=== PATIENT | female | born 1995 | race Caucasian/White ===

== ENCOUNTER 2017-05-13 12:42 | Inpatient (IN) | payer MEDICAID ==
[~2017-05-13] VITALS: Ht 157.5 cm; Wt 63.0 kg
--- NOTE | 2017-05-13 13:14 | RADRPT ---
PROCEDURE: OB ultrasound for biophysical profile CLINICAL INDICATION: Low ANA TECHNIQUE: Multiple sonographic images of the pelvis were obtained. Transabdominal views of the g ravid uterus are available for review. The images were reviewed on a PACS workstation. COMPARISON: None FINDINGS: breathing movement = 2/2 tone = 2/2 motion = 2/2 ANA = 2/2 ANA = 7.6 cm Single live intrauterine with cardiac activity of 139 bpm. position is cephal ic. The placenta is anterior. IMPRESSION: 1. Single live intrauterine gestation. 2. Biophysical profile = 8/8. 3. ANA = 7.6 cm. RPTAT: HH .Angeli Breaux MD, MD Date Time Electronically viewed and signed by .Angeli Breaux MD, on 05/13/2017 13:14 .G/
[2017-05-13 13:21] VITALS: Ht 157.5 cm; Wt 63.0 kg
[2017-05-13] MEDS ORDERED: LACTATED RINGER'S 1,000 ML IV ONE (14:00)
--- NOTE | 2017-05-13 14:48 | RADRPT ---
PROCEDURE: Limited OB ultrasound. CLINICAL INDICATION: Pain and cramping . Evaluate cervical length. TECHNIQUE: Sonographic evaluation to assess cervical length was performed. Transabdominal imaging of the gravid uterus was performed. COMPARISON: None FINDINGS: Single live intrauterine with cardiac activity is identified. The cervical length e quals 3.9. cm. The cervix is closed. There is a cephalic presentation. Heart rate 148 beats per mi nute. Anterior grade II placenta. IMPRESSION: 1. Closed cervix measuring 3 point centimeters in length. 2. Cephalic presentation. RPTAT: GG .Christopher Phillips MD, Date Time Electronically viewed and signed by .Christopher Phillips MD, on 05/13/2017 14:48 .L/
[2017-05-13 15:03] LABS: BASOPHIL # 0.1 10^3/ul (0.0-0.1); BASOPHILS % 0.5 % (0.0-2.0); EOSINOPHILS # 0.1 10^3/ul (0.0-0.5); EOSINOPHILS % 0.9 % (0.0-7.0); HEMATOCRIT 33.7 % (37.0-47.0); HEMOGLOBIN 11.2 g/dl (12.0-16.0); LYMPHOCYTES # 1.7 10^3/ul (0.8-2.9); LYMPHOCYTES % 16.1 % (15.0-51.0); MEAN CORPUSCULAR HGB CONC 33.2 g/dl (32.0-37.0); MEAN CORPUSCULAR VOLUME 87.3 fl (82.0-101.0); MONOCYTE # 0.9 10^3/ul (0.3-0.9); MONOCYTES % 8.1 % (0.0-11.0); NEUTROPHIL # 7.8 10^3/ul (1.6-7.5); NEUTROPHILS % 73.6 % (39.0-77.0); PLATELET COUNT 282 10^3/UL (140-415); RED BLOOD COUNT 3.86 10^6/ul (4.20-5.40); RED CELL DISTRIBUTION WIDTH 13.1 % (11.5-14.5); WHITE BLOOD COUNT 10.6 10^3/ul (4.8-10.8)
[2017-05-13 15:20] LABS: ADD UMIC YES; UR ASCORBIC ACID NEGATIVE (NEGATIVE); UR BACTERIA FEW /HPF (NONE SEEN); UR BILIRUBIN (Dip) NEGATIVE (NEGATIVE); UR BLOOD (Dip) NEGATIVE (NEGATIVE); UR CLARITY CLEAR (CLEAR); UR COLOR COLORLESS (YELLOW); UR GLUCOSE (Dip) NEGATIVE (NEGATIVE); UR KETONES (Dip) NEGATIVE (NEGATIVE); UR LEUKOCYTE ESTERASE (Dip) TRACE Leu/ul (NEGATIVE); UR NITRITE (Dip) NEGATIVE (NEGATIVE); UR RBC 0 /HPF (0-5); UR SPECIFIC GRAVITY (Dip) 1.002 (1.003-1.030); UR TOTAL PROTEIN (Dip) NEGATIVE (NEGATIVE); UR UROBILINOGEN (Dip) NEGATIVE (NEGATIVE)
[2017-05-13] MEDS ORDERED: ACETAMINOPHEN 325 MG TAB PO PRN (15:30)
[2017-05-13] MEDS: BETAMET NA PHOS/AC(6 MG/ML) 5ML INJ IM SCH (16:08)
[2017-05-13] MEDS: LACTATED RINGER'S 1,000 ML IV SCH (16:08)
[2017-05-14] MEDS: LACTATED RINGER'S 1,000 ML IV SCH ×3 (03:02→20:26)
--- NOTE | 2017-05-14 05:47 | NEURPT ---
DATE: 05/13/2017 COMMENTS: The patient apparently was admitted to [facility] with ANA of 3.2. She was given IV fluid and discharged yesterday with ANA of 8 cm. She presented again today to re- evaluate ANA, and also she has va. She is currently 35 and 3. Her ANA 7.6 cm. RECOMMENDATIONS: Since patient is less than 36 weeks' gestation and va, betamethasone is recommended. Also, since the betamethasone is going to be given, then you can consider Procardia every 6 hours if blood pressures allow 20 mg a day; if not, 10 mg every 6 hours. I would refrain from hydration for the next 24 hours just to see if she does hold onto the ANA of 7.6 cm. If her ANA drops below 7 cm, then you can consider IV hydration. The patient is to stay in house until at least Tuesday for hydration, betamethasone, and Procardia. Procardia can be discontinued after the second dose of betamethasone. Dictated By: Radha Rubalcava MD /zoran/sophie /Document#: [id number]
[2017-05-14] MEDS: FERROUS SULFATE (EC) 325 MG TAB PO SCH (09:15)
[2017-05-14] MEDS: PRENATAL VITAMIN PO SCH (09:15)
--- NOTE | 2017-05-14 09:15 | PREOPHP ---
DATE OF ADMISSION: 05/13/2017 HISTORY OF PRESENT ILLNESS: Ms. Serene Ash is a 21-year- old, I, para 0, EDC 06/14/2017, with intrauterine at 35 weeks and 4 days gestational age. She presented to triage for nonstress test/biophysical profile secondary to a history of oligohydramnios in the present . She was observed to have contractions and ANA of 7.5 cm. After discussion with Dr. Rubalcava, perinatologist, it was recommended to admit the patient for steroid treatment and continue to give IV hydration. She currently lying in supine position with no apparent distress. Patient feels occasional contractions. She denies any vaginal bleeding or discharge. She was already seen and evaluated last week for rule out rupture of membrane, at [facility], which was negative. Her care took place at . PAST MEDICAL HISTORY: None. MEDICATIONS: vitamins. PAST SURGICAL HISTORY: None. OB HISTORY: Primigravida. 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 Denies any sexually transmitted disease. Sexually active with 1 partner. SOCIAL HISTORY: Denies any smoking, drugs or alcohol. FAMILY HISTORY: None. REVIEW OF SYSTEMS: All within normal, except history of present illness. PHYSICAL EXAMINATION: HEENT: Within normal limits. CARDIAC: S1, S2 regular rhythm. ABDOMEN: Gravid and nontender. Negative CVA bilateral. EXTREMITIES: Edema. No calf tenderness. GENITALIA: Vaginal exam is long, closed. Negative pooling. ASSESSMENT: The patient is a 21-year-old, I, para 0, intrauterine at 35 weeks and 4 days gestational age, with contractions/low amniotic fluid index. PLAN: Plan is steroid treatment, followed up with perinatology. Dictated By: Gutierrez Washington MD /zoran/robbie /Document#: [id number]
[2017-05-14] MEDS: BETAMET NA PHOS/AC(6 MG/ML) 5ML INJ IM SCH (16:07)
[2017-05-15] MEDS: LACTATED RINGER'S 1,000 ML IV SCH ×2 (04:26→18:49)
[2017-05-15] MEDS: FERROUS SULFATE (EC) 325 MG TAB PO SCH ×2 (09:00→09:43)
[2017-05-15] MEDS: PRENATAL VITAMIN PO SCH ×2 (09:00→09:43)
[2017-05-15] MEDS ORDERED: PRENATAL VITAMIN PO SCH (10:00)
[2017-05-15] MEDS ORDERED: FERROUS SULFATE (EC) 325 MG TAB PO SCH (10:00)
--- NOTE | 2017-05-15 12:36 | QN ---
Documentation Comment Patient was seen and evaluated awake alert oriented 3 Patient denies any contractions vaginal bleeding or discharge Vital signs stable Abdomen gravid nontender negative CVA bilateral Extremity negative edema no calf tenderness heart tracing category 1 [place] irregular contractions Assessment interim at 35 weeks and 5 days gestational age contractions low ANA Status post 2 steroid treatments for lung maturity Plan follow-up with perinatologist MARIKA ROSA MD May 15, 2017 12:36
[2017-05-16] MEDS: LACTATED RINGER'S 1,000 ML IV SCH (07:34)
[2017-05-16] MEDS: FERROUS SULFATE (EC) 325 MG TAB PO SCH (09:13)
[2017-05-16] MEDS: PRENATAL VITAMIN PO SCH (09:14)
--- NOTE | 2017-05-16 12:59 | RADRPT ---
PROCEDURE: US OB biophysical profile. CLINICAL INDICATION: decreased movements, low ANA TECHNIQUE: Multiple sonographic images of the pelvis were obtained. The images were reviewed on a PACS workstation. COMPARISON: 05/13/2017 FINDINGS: There is a single viable intrauterine gestation. Cardiac activity is present with 154 beats per min [place]. There is a vertex presentation. The placenta is anterior. There is no evidence of placental abruption. There is a normal amount of amniotic fluid with an ANA = 9.0 cm. Biophysical profile: movement 2/2 tone 2/2. breathing 2/2 ANA 2/2 Total 04/05 RPTAT: AA . IMPRESSION: Normal biophysical profile. . .Diaz Bobby MD, MD Date Time Electronically viewed and signed by .Diaz Bobby MD, MD on 05/16/2017 12:59 .S/
--- NOTE | 2017-05-16 13:45 | QN ---
Documentation Comment atient was seen and evaluated awake alert oriented 3 Patient denies any contractions vaginal bleeding or discharge Vital signs stable Abdomen gravid nontender negative CVA bilateral Extremity negative edema no calf tenderness heart tracing category 1 [place] irregular contractions ana 9cm Assessment interim at 35 weeks and 6 days gestational age contractions low ANA Status post 2 steroid treatments for lung maturity P/ recommended by dr. salgado to discharge home today if increase aft I will discharge home tome continue nst/ bpp 2 weekly MARIKA ROSA MD May 16, 2017 13:45
--- NOTE | 2017-05-16 13:47 | PD.PPDC ---
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
--- NOTE | 2017-05-16 21:38 | DS ---
DATE OF ADMISSION: 05/13/2017 DATE OF DISCHARGE: 05/16/2017 HOSPITAL COURSE: Ms. Serene Salgado is a 21-year-old, 1, para 0, intrauterine at 35 weeks and 6 days gestational age was admitted on 05/13/2017 secondary to history of oligohydramnios and currently low ANA. Recommended by perinatologist to be admitted for steroid treatment and IV hydration. The patient was seen and evaluated today by Dr. Rubalcava who recommended to discharge home with ANA improved. She will be discharged on 05/16/2017. FOLLOWUP: In the office in 2-3 days. DISCHARGE INSTRUCTIONS: Strict labor precautions given and followup NSC bronchoscope for followup twice weekly. Dictated By: Gutierrez Washington MD /zoran/diana /Document#: [id number]
== END 2017-05-16 14:55 | disposition home or self-care (01) | DRG 782 ==
LOC: OBT 12:42 → L-D 12:47 → OBT 15:25 → OBG 15:25
PROVIDERS: ADMIT Obstetrics & Gynecology; ATTEND Obstetrics & Gynecology
DX: O41.03X0 Oligohydramnios, third trimester, not applicable or unspecified (principal); Z3A.35 35 weeks gestation of pregnancy
CPT/HCPCS: 36415; 76817; 76818; 81001; 85025; 87081; 96360; G0463; J0702; J7120

== ENCOUNTER 2017-05-19 15:08 | Outpatient (CLI) | payer MEDICAID ==
[~2017-05-19] VITALS: Ht 157.5 cm; Wt 62.4 kg
[2017-05-19 15:16] VITALS: BP 107/62; PULSE 96; RESP 18; Ht 157.5 cm; Wt 62.4 kg
[2017-05-19] MEDS: LACTATED RINGER'S 1,000 ML IV SCH ×2 (15:22→18:33)
--- NOTE | 2017-05-19 21:04 | RADRPT ---
PROCEDURE: Limited OB ultrasound CLINICAL INDICATION: 21 years of age, female. Evaluate amniotic fluid. Low ANA. TECHNIQUE: Sonographic evaluation to assess the amniotic fluid index was performed. Transabdomina l imaging of the gravid uterus was performed. COMPARISON: None available. FINDINGS: Estimated due date June 14, 2017 Gestational age by SID 36 weeks 2 days A single live intrauterine in is cephalic presentation is identified. The heart rate measures 150 bpm. The amniotic -fluid index equals 7.3 cm. There is an anterior placenta, grade 2. IMPRESSION: 1. Single living fetus in cephalic presentation. 2. Oligohydramnios. Amniotic fluid index measures 7.3 cm. 3. Anterior placenta grade II RPTAT: HCTS Physician Thelma Date Time Electronically viewed and signed by Physician Thelma on 05/19/2017 21:03 CS/
--- NOTE | 2017-05-19 22:12 | TRIAGE ---
OB Triage Datetime Report Generated by CPN: 05/19/2017 22:11 Datetime: 05/19/2017 21:28 Stage of : OB Triage Labor Evaluation Frequency: 0 Monitor Mode: External Pattern: Normal: <= 5 Contractions in 10 Minutes Resting Tone [place]: Relaxed Heart Rate FHR Baseline Rate: 150 Monitor Mode: External US Variability: Moderate 6-25 bpm Accelerations: 15X15 Decelerations: None Pain Presence: None/Denies Pain Type: N/A Datetime: 05/19/2017 21:00 Stage of : OB Triage Temperature Route: Oral Labor Evaluation Frequency: 0 Monitor Mode: External Pattern: Normal: <= 5 Contractions in 10 Minutes Resting Tone [place]: Relaxed Heart Rate FHR Baseline Rate: 150 Monitor Mode: External US Variability: Moderate 6-25 bpm Accelerations: 15X15 Decelerations: None Category: Category I Pain Presence: None/Denies Pain Type: N/A Datetime: 05/19/2017 20:00 Stage of : OB Triage Temperature Route: Oral Labor Evaluation Frequency: 0 Monitor Mode: External Pattern: Normal: <= 5 Contractions in 10 Minutes Resting Tone [place]: Relaxed Heart Rate FHR Baseline Rate: 150 Monitor Mode: External US Variability: Moderate 6-25 bpm Accelerations: 15X15 Decelerations: None Category: Category I Pain Presence: None/Denies Pain Type: N/A Datetime: 05/19/2017 19:00 Pattern: Normal: <= 5 Contractions in 10 Minutes Resting Tone [place]: Relaxed Contraction Comments: NO UC Heart Rate FHR Baseline Rate: 155 Monitor Mode: External US Variability: Moderate 6-25 bpm Accelerations: 15X15 Decelerations: None Category: Category I Pain Presence: None/Denies Pain Type: N/A Datetime: 05/19/2017 18:00 Labor Evaluation Frequency: OCC Monitor Mode: External Duration (sec)2399: 50 Quality: Mild Pattern: Normal: <= 5 Contractions in 10 Minutes Resting Tone [place]: Relaxed Heart Rate FHR Baseline Rate: 155 Monitor Mode: External US Variability: Moderate 6-25 bpm Accelerations: 15X15 Decelerations: None Category: Category I Pain Presence: None/Denies Pain Type: N/A Datetime: 05/19/2017 17:01 Pattern: Normal: <= 5 Contractions in 10 Minutes Resting Tone [place]: Relaxed Contraction Comments: no uc Heart Rate FHR Baseline Rate: 155 Monitor Mode: External US Variability: Moderate 6-25 bpm Accelerations: 15X15 Decelerations: None Category: Category I Pain Presence: None/Denies Pain Type: N/A Datetime: 05/19/2017 16:01 Labor Evaluation Frequency: occ Monitor Mode: External Duration (sec)2399: 50-60 Quality: Mild Pattern: Normal: <= 5 Contractions in 10 Minutes Resting Tone [place]: Relaxed Heart Rate FHR Baseline Rate: 155 Monitor Mode: External US Variability: Moderate 6-25 bpm Accelerations: 15X15 Decelerations: Variable Category: Category II Pain Presence: None/Denies Pain Type: N/A Datetime: 05/19/2017 15:20 Assessment Type: Ongoing Assessment Maternal Assessment Level of Consciousness: Fully Conscious DTR's/Clonus: DTRs 2+; No Clonus Headache: Denies Blurred Vision: No Respiratory Effort: Unlabored; Regular Rhythm; Equal Expansion Breath Sounds, Left: Clear and Equal Breath Sounds, Right: Clear and Equal Nausea/Vomiting: Denies RUQ Epigastric Pain: Denies Lower Extremities Edema: None Degree: None Upper Extremities Edema: None Degree: None Facial Edema: None Fall Risk Assessment History of Falling: (0) No Secondary Diagnosis: (0) No Ambulatory Aid: (0) Bedrest/Nurse Assist IV Therapy: (20) Yes Gait: (0) Normal/Bedrest/Immobile Mental Status: (0) Oriented to Own Ability Fall Score: 20 Fall Risk Score Definition: No Risk: No action required Datetime: 05/19/2017 15:19 Time of Arrival: 05/19/2017 15:03 EGA: 36.2 Arrived By: Ambulatory Arrived From: Other Unit in Hospital Chief Complaint: Pt. came to ob triage from [facility] clinic for iv hydration due to jeffery 6.4 today Movement: Present Patient Complaints: None Time Provider Notified: 05/19/2017 16:22 Provider Notified: [email or web address] Initial Plan: iv hydration Datetime: 05/16/2017 14:07 Stage of : Antepartum Datetime: 05/16/2017 14:00 Labor Evaluation Frequency: OCCASIONAL Monitor Mode: External Quality: Mild Contraction Comments: PT DOES NOT FEEL CONTRACTIONS Heart Rate FHR Baseline Rate: 140 Monitor Mode: External US FHR Baseline Changes: No Baseline Change Variability: Moderate 6-25 bpm Accelerations: 15X15 Decelerations: None Category: Category I Datetime: 05/16/2017 13:44 Labor Evaluation Frequency: 0 Monitor Mode: External Resting Tone [place]: Relaxed Heart Rate FHR Baseline Rate: 140 Monitor Mode: External US FHR Baseline Changes: No Baseline Change Variability: Moderate 6-25 bpm Accelerations: 15X15 Decelerations: None Category: Category I Datetime: 05/16/2017 13:01 Labor Evaluation Frequency: 0 Monitor Mode: External Resting Tone [place]: Relaxed Heart Rate FHR Baseline Rate: 140 Monitor Mode: External US FHR Baseline Changes: No Baseline Change Variability: Moderate 6-25 bpm Accelerations: 15X15 Decelerations: None Category: Category I Datetime: 05/16/2017 12:56 Stage of : Antepartum Datetime: 05/16/2017 12:01 Labor Evaluation Frequency: IRREG Monitor Mode: External Resting Tone [place]: Relaxed Contraction Comments: PT DOES NOT FEEL CONTRACTIONS Heart Rate FHR Baseline Rate: 140 Monitor Mode: External US FHR Baseline Changes: No Baseline Change Variability: Moderate 6-25 bpm Accelerations: 15X15 Decelerations: None Category: Category I Datetime: 05/16/2017 11:22 Stage of : Antepartum Temperature Route: Oral Pain Assessment Pain Scale: 1 Pain Presence: Intermittent Pain Type: Contraction Pain Location: Abdomen Pain Goal: 0 Datetime: 05/16/2017 10:51 Labor Evaluation Frequency: X3 Monitor Mode: External Pattern: Normal: <= 5 Contractions in 10 Minutes Heart Rate FHR Baseline Rate: 140 Monitor Mode: External US FHR Baseline Changes: No Baseline Change Variability: Moderate 6-25 bpm Accelerations: 15X15 Decelerations: None Category: Category I Datetime: 05/16/2017 10:00 Labor Evaluation Frequency: X2 Monitor Mode: External Resting Tone [place]: Relaxed Heart Rate FHR Baseline Rate: 140 Monitor Mode: External US FHR Baseline Changes: No Baseline Change Variability: Moderate 6-25 bpm Accelerations: 15X15 Decelerations: None Category: Category I Datetime: 05/16/2017 09:56 Stage of : Antepartum Datetime: 05/16/2017 09:00 Labor Evaluation Frequency: X2 WITH IRRIT Monitor Mode: External Quality: Mild Pattern: Normal: <= 5 Contractions in 10 Minutes Resting Tone [place]: Relaxed Datetime: 05/16/2017 07:58 Assessment Type: Ongoing Assessment Maternal Assessment Level of Consciousness: Fully Conscious DTR's/Clonus: DTRs 2+; No Clonus Headache: Denies Blurred Vision: No Respiratory Effort: Unlabored; Regular Rhythm; Equal Expansion Breath Sounds, Left: Clear and Equal Breath Sounds, Right: Clear and Equal Nausea/Vomiting: Denies RUQ Epigastric Pain: Denies Lower Extremities Edema: None Degree: None Upper Extremities Edema: None Degree: None Facial Edema: None Fall Risk Assessment History of Falling: (0) No Secondary Diagnosis: (0) No Ambulatory Aid: (0) Bedrest/Nurse Assist IV Therapy: (20) Yes Gait: (0) Normal/Bedrest/Immobile Mental Status: (0) Oriented to Own Ability Fall Score: 20 Fall Risk Score Definition: No Risk: No action required Datetime: 05/16/2017 07:54 Labor Evaluation Frequency: IRREG Monitor Mode: External Duration (sec)2399: 40-60 Quality: Mild Resting Tone [place]: Relaxed Heart Rate FHR Baseline Rate: 140 Monitor Mode: External US FHR Baseline Changes: No Baseline Change Variability: Moderate 6-25 bpm Accelerations: 15X15 Decelerations: None Category: Category I Datetime: 05/16/2017 07:52 Stage of : Antepartum Temperature Route: Oral Pain Assessment Pain Scale: 1 Pain Presence: Intermittent Pain Type: Contraction Pain Location: Abdomen Pain Goal: 0 Pain Relief Measures: Comfort Measures Datetime: 05/16/2017 06:59 Labor Evaluation Frequency: IRREG Monitor Mode: External Duration (sec)2399: 30-120 Quality: Mild Resting Tone [place]: Relaxed Heart Rate FHR Baseline Rate: 130 Monitor Mode: External US FHR Baseline Changes: No Baseline Change Variability: Moderate 6-25 bpm Accelerations: 15X15 Decelerations: None Category: Category I Datetime: 05/16/2017 06:00 Labor Evaluation Frequency: IRREG Monitor Mode: External Duration (sec)2399: 30-120 Quality: Mild Resting Tone [place]: Relaxed Heart Rate FHR Baseline Rate: 130 Monitor Mode: External US FHR Baseline Changes: No Baseline Change Variability: Moderate 6-25 bpm Accelerations: 15X15 Decelerations: None Category: Category I Datetime: 05/16/2017 05:00 Labor Evaluation Frequency: IRREG Monitor Mode: External Duration (sec)2399: 30-120 Quality: Mild Resting Tone [place]: Relaxed Heart Rate FHR Baseline Rate: 130 Monitor Mode: External US FHR Baseline Changes: No Baseline Change Variability: Moderate 6-25 bpm Accelerations: 15X15 Decelerations: None Category: Category I Datetime: 05/16/2017 04:49 Temperature Route: Oral Pain Assessment Pain Scale: 0 Datetime: 05/16/2017 04:00 Labor Evaluation Frequency: IRREG Monitor Mode: External Duration (sec)2399: 30-110 Quality: Mild Resting Tone [place]: Relaxed Heart Rate FHR Baseline Rate: 130 Monitor Mode: External US FHR Baseline Changes: No Baseline Change Variability: Moderate 6-25 bpm Accelerations: 15X15 Decelerations: None Category: Category I Datetime: 05/16/2017 03:00 Labor Evaluation Frequency: IRREG Monitor Mode: External Duration (sec)2399: 30-120 Quality: Mild Resting Tone [place]: Relaxed Heart Rate FHR Baseline Rate: 130 Monitor Mode: External US FHR Baseline Changes: No Baseline Change Variability: Moderate 6-25 bpm Accelerations: 15X15 Decelerations: Variable Category: Category II Datetime: 05/16/2017 02:05 Contraction Comments: ZERO ADJ. Datetime: 05/16/2017 02:00 Labor Evaluation Frequency: IRRITABL Monitor Mode: External Duration (sec)2399: 20-80 Quality: Mild Resting Tone [place]: Relaxed Heart Rate FHR Baseline Rate: 130 Monitor Mode: External US FHR Baseline Changes: No Baseline Change Variability: Moderate 6-25 bpm Accelerations: 15X15 Decelerations: None Category: Category I Datetime: 05/16/2017 01:00 Labor Evaluation Frequency: IRRITABL Monitor Mode: External Duration (sec)2399: 40-60 Quality: Mild Resting Tone [place]: Relaxed Heart Rate FHR Baseline Rate: 130 Monitor Mode: External US FHR Baseline Changes: No Baseline Change Variability: Moderate 6-25 bpm Accelerations: 15X15 Decelerations: None Category: Category I Datetime: 05/16/2017 00:00 Labor Evaluation Frequency: IRREG Monitor Mode: External Duration (sec)2399: 30-90 Quality: Mild Resting Tone [place]: Relaxed Heart Rate FHR Baseline Rate: 130 Monitor Mode: External US FHR Baseline Changes: No Baseline Change Variability: Moderate 6-25 bpm Accelerations: 15X15 Decelerations: None Category: Category I Datetime: 05/15/2017 23:00 Labor Evaluation Frequency: IRRITABL Monitor Mode: External Duration (sec)2399: 20-40 Quality: Mild Resting Tone [place]: Relaxed Heart Rate FHR Baseline Rate: 130 Monitor Mode: External US FHR Baseline Changes: No Baseline Change Variability: Moderate 6-25 bpm Accelerations: 15X15 Decelerations: None Category: Category I Datetime: 05/15/2017 22:00 Labor Evaluation Frequency: IRRITABL Monitor Mode: External Duration (sec)2399: 30-50 Quality: Mild Resting Tone [place]: Relaxed Heart Rate FHR Baseline Rate: 140 Monitor Mode: External US FHR Baseline Changes: No Baseline Change Variability: Moderate 6-25 bpm Accelerations: 15X15 Decelerations: None Category: Category I Datetime: 05/15/2017 21:00 Labor Evaluation Frequency: X2 Monitor Mode: External Duration (sec)2399: 60-70 Quality: Mild Resting Tone [place]: Relaxed Heart Rate FHR Baseline Rate: 135 Monitor Mode: External US FHR Baseline Changes: No Baseline Change Variability: Moderate 6-25 bpm Accelerations: 15X15 Decelerations: None Category: Category I Datetime: 05/15/2017 20:00 Labor Evaluation Frequency: X2 Monitor Mode: External Duration (sec)2399: 60 Quality: Mild Resting Tone [place]: Relaxed Heart Rate FHR Baseline Rate: 130 Monitor Mode: External US FHR Baseline Changes: No Baseline Change Variability: Moderate 6-25 bpm Accelerations: 15X15 Decelerations: Variable Category: Category II Datetime: 05/15/2017 19:43 Maternal Assessment Level of Consciousness: Fully Conscious Headache: Denies Blurred Vision: No Breath Sounds, Right: Clear and Equal Nausea/Vomiting: Denies RUQ Epigastric Pain: Denies Lower Extremities Edema: None Upper Extremities Edema: None Facial Edema: None Temperature Route: Oral Fall Risk Assessment History of Falling: (0) No Secondary Diagnosis: (0) No Ambulatory Aid: (0) Bedrest/Nurse Assist IV Therapy: (20) Yes Gait: (0) Normal/Bedrest/Immobile Mental Status: (0) Oriented to Own Ability Fall Score: 20 Fall Risk Score Definition: No Risk: No action required Pain Assessment Pain Scale: 1 Pain Presence: Intermittent Pain Type: Cramping Pain Location: Abdomen Datetime: 05/15/2017 18:43 Labor Evaluation Frequency: 5/hr Monitor Mode: External Duration (sec)2399: 40-60 Quality: Mild Resting Tone [place]: Relaxed Heart Rate FHR Baseline Rate: 135 Monitor Mode: External US FHR Baseline Changes: No Baseline Change Variability: Moderate 6-25 bpm Accelerations: 15X15 Decelerations: None Category: Category I Datetime: 05/15/2017 17:56 Labor Evaluation Frequency: 13 Monitor Mode: External Duration (sec)2399: 30-70 Quality: Mild Resting Tone [place]: Relaxed Heart Rate FHR Baseline Rate: 130 Monitor Mode: External US FHR Baseline Changes: No Baseline Change Variability: Moderate 6-25 bpm Accelerations: 15X15 Decelerations: None Category: Category I Pain Assessment Pain Scale: 1 Pain Type: Contraction Pain Goal: 0 Datetime: 05/15/2017 16:22 Labor Evaluation Frequency: 1 Monitor Mode: External Duration (sec)2399: 70 Quality: Mild Resting Tone [place]: Relaxed Heart Rate FHR Baseline Rate: 135 Monitor Mode: External US FHR Baseline Changes: No Baseline Change Variability: Moderate 6-25 bpm Accelerations: 15X15 Decelerations: None Category: Category I Datetime: 05/15/2017 15:59 Labor Evaluation Frequency: irritability Monitor Mode: External Quality: Mild Resting Tone [place]: Relaxed Heart Rate FHR Baseline Rate: 140 Monitor Mode: External US FHR Baseline Changes: No Baseline Change Variability: Moderate 6-25 bpm Accelerations: 15X15 Decelerations: None Category: Category I Datetime: 05/15/2017 15:00 Labor Evaluation Frequency: occasional Monitor Mode: External Quality: Mild Resting Tone [place]: Relaxed Heart Rate FHR Baseline Rate: 125 Monitor Mode: External US FHR Baseline Changes: No Baseline Change Variability: Moderate 6-25 bpm Accelerations: 15X15 Decelerations: None Category: Category I Pain Presence: None/Denies Datetime: 05/15/2017 14:19 Labor Evaluation Frequency: 1 Monitor Mode: External Duration (sec)2399: 50 Quality: Mild Resting Tone [place]: Relaxed Heart Rate FHR Baseline Rate: 130 Monitor Mode: External US FHR Baseline Changes: No Baseline Change Variability: Moderate 6-25 bpm Accelerations: 15X15 Decelerations: None Category: Category I Datetime: 05/15/2017 12:28 Labor Evaluation Frequency: 3/hr Monitor Mode: External Duration (sec)2399: 40-70 Resting Tone [place]: Relaxed Heart Rate FHR Baseline Rate: 140 Monitor Mode: External US FHR Baseline Changes: No Baseline Change Variability: Moderate 6-25 bpm Accelerations: 15X15 Decelerations: None Category: Category I Datetime: 05/15/2017 11:05 Labor Evaluation Frequency: occasional Monitor Mode: External Quality: Mild Resting Tone [place]: Relaxed Interventions: Side to Side Heart Rate FHR Baseline Rate: 135 Monitor Mode: External US FHR Baseline Changes: No Baseline Change Variability: Moderate 6-25 bpm Accelerations: 15X15 Decelerations: None Category: Category I Datetime: 05/15/2017 10:02 Labor Evaluation Frequency: 3 Monitor Mode: External Duration (sec)2399: 70 Quality: Mild Resting Tone [place]: Relaxed Heart Rate FHR Baseline Rate: 140 Monitor Mode: External US FHR Baseline Changes: No Baseline Change Variability: Moderate 6-25 bpm Accelerations: 15X15 Decelerations: None Category: Category I Datetime: 05/15/2017 09:01 Labor Evaluation Frequency: 4 Monitor Mode: External Duration (sec)2399: 40-60 Quality: Mild Resting Tone [place]: Relaxed Heart Rate FHR Baseline Rate: 130 Monitor Mode: External US FHR Baseline Changes: No Baseline Change Variability: Moderate 6-25 bpm Accelerations: 15X15 Decelerations: None Category: Category I Datetime: 05/15/2017 07:53 Labor Evaluation Frequency: 8 Monitor Mode: External Duration (sec)2399: 40-70 Quality: Mild Resting Tone [place]: Relaxed Contraction Comments: pt states she occasionally feels a contraction but pain level is 1 with cont ractions occasionally. denies leaking of fluid or blood from vagina. resting comfortably Heart Rate FHR Baseline Rate: 130 Monitor Mode: External US FHR Baseline Changes: No Baseline Change Variability: Moderate 6-25 bpm Accelerations: 15X15 Decelerations: None Category: Category I Pain Assessment Pain Scale: 1 Pain Presence: Intermittent Pain Type: Contraction Datetime: 05/15/2017 07:52 Assessment Type: Ongoing Assessment Maternal Assessment Level of Consciousness: Fully Conscious DTR's/Clonus: DTRs 2+; No Clonus Headache: Denies Blurred Vision: No Respiratory Effort: Unlabored; Regular Rhythm; Equal Expansion Breath Sounds, Left: Clear and Equal Breath Sounds, Right: Clear and Equal Nausea/Vomiting: Denies RUQ Epigastric Pain: Denies Facial Edema: None Fall Risk Assessment History of Falling: (0) No Secondary Diagnosis: (0) No Ambulatory Aid: (0) Bedrest/Nurse Assist IV Therapy: (20) Yes Gait: (0) Normal/Bedrest/Immobile Mental Status: (0) Oriented to Own Ability Fall Score: 20 Fall Risk Score Definition: No Risk: No action required Datetime: 05/15/2017 06:58 Labor Evaluation Frequency: IRREG Monitor Mode: External Duration (sec)2399: 30-90 Quality: Mild Resting Tone [place]: Relaxed Heart Rate FHR Baseline Rate: 125 Monitor Mode: External US FHR Baseline Changes: No Baseline Change Variability: Moderate 6-25 bpm Accelerations: 15X15 Decelerations: None Category: Category I Datetime: 05/15/2017 06:00 Labor Evaluation Frequency: IRREG Monitor Mode: External Duration (sec)2399: 30-120 Quality: Mild Resting Tone [place]: Relaxed Heart Rate FHR Baseline Rate: 125 Monitor Mode: External US FHR Baseline Changes: No Baseline Change Variability: Moderate 6-25 bpm Accelerations: 15X15 Decelerations: None Category: Category I Datetime: 05/15/2017 05:00 Labor Evaluation Frequency: IRREG Monitor Mode: External Duration (sec)2399: 30-120 Quality: Mild Resting Tone [place]: Relaxed Heart Rate FHR Baseline Rate: 125 Monitor Mode: External US FHR Baseline Changes: No Baseline Change Variability: Moderate 6-25 bpm Accelerations: 15X15 Decelerations: None Category: Category I Datetime: 05/15/2017 04:26 Temperature Route: Oral Pain Assessment Pain Scale: 0 Datetime: 05/15/2017 04:00 Labor Evaluation Frequency: IRREG Monitor Mode: External Duration (sec)2399: 30-120 Quality: Mild Resting Tone [place]: Relaxed Heart Rate FHR Baseline Rate: 120 Monitor Mode: External US FHR Baseline Changes: No Baseline Change Variability: Moderate 6-25 bpm Accelerations: 15X15 Decelerations: None Category: Category I Datetime: 05/15/2017 03:00 Labor Evaluation Frequency: IRREG Monitor Mode: External Duration (sec)2399: 30-80 Quality: Mild Resting Tone [place]: Relaxed Heart Rate FHR Baseline Rate: 120 Monitor Mode: External US FHR Baseline Changes: No Baseline Change Variability: Moderate 6-25 bpm Accelerations: 15X15 Decelerations: None Category: Category I Datetime: 05/15/2017 02:00 Labor Evaluation Frequency: X3 Monitor Mode: External Duration (sec)2399: 50-60 Quality: Mild Resting Tone [place]: Relaxed Heart Rate FHR Baseline Rate: 130 Monitor Mode: External US FHR Baseline Changes: No Baseline Change Variability: Moderate 6-25 bpm Accelerations: 15X15 Decelerations: None Category: Category I Datetime: 05/15/2017 01:00 Labor Evaluation Frequency: IRRITABL Monitor Mode: External Duration (sec)2399: 20-50 Quality: Mild Resting Tone [place]: Relaxed Heart Rate FHR Baseline Rate: 130 Monitor Mode: External US FHR Baseline Changes: No Baseline Change Variability: Moderate 6-25 bpm Accelerations: 15X15 Decelerations: None Category: Category I Datetime: 05/15/2017 00:00 Labor Evaluation Frequency: X1 Monitor Mode: External Duration (sec)2399: 120 Quality: Mild Resting Tone [place]: Relaxed Heart Rate FHR Baseline Rate: 140 Monitor Mode: External US FHR Baseline Changes: No Baseline Change Variability: Moderate 6-25 bpm Accelerations: 15X15 Decelerations: None Category: Category I Datetime: 05/14/2017 23:00 Labor Evaluation Frequency: 0 Monitor Mode: External Heart Rate FHR Baseline Rate: 140 Monitor Mode: External US FHR Baseline Changes: No Baseline Change Variability: Moderate 6-25 bpm Accelerations: 15X15 Decelerations: None Category: Category I Datetime: 05/14/2017 22:00 Labor Evaluation Frequency: 0 Monitor Mode: External Heart Rate FHR Baseline Rate: 140 Monitor Mode: External US FHR Baseline Changes: No Baseline Change Variability: Moderate 6-25 bpm Accelerations: 15X15 Decelerations: None Category: Category I Datetime: 05/14/2017 21:00 Labor Evaluation Frequency: 0 Monitor Mode: External Heart Rate FHR Baseline Rate: 140 Monitor Mode: External US FHR Baseline Changes: No Baseline Change Variability: Moderate 6-25 bpm Accelerations: 15X15 Decelerations: None Category: Category I Datetime: 05/14/2017 20:00 Labor Evaluation Frequency: 0 Monitor Mode: External Heart Rate FHR Baseline Rate: 140 Monitor Mode: External US FHR Baseline Changes: No Baseline Change Variability: Moderate 6-25 bpm Accelerations: 15X15 Decelerations: Variable Category: Category II Datetime: 05/14/2017 19:47 Assessment Type: Ongoing Assessment Maternal Assessment Level of Consciousness: Fully Conscious Headache: Denies Blurred Vision: No Respiratory Effort: Unlabored; Regular Rhythm; Equal Expansion Nausea/Vomiting: Denies RUQ Epigastric Pain: Denies Lower Extremities Edema: None Upper Extremities Edema: None Facial Edema: None Temperature Route: Oral Fall Risk Assessment History of Falling: (0) No Secondary Diagnosis: (0) No Ambulatory Aid: (0) Bedrest/Nurse Assist IV Therapy: (20) Yes Gait: (0) Normal/Bedrest/Immobile Mental Status: (0) Oriented to Own Ability Fall Score: 20 Fall Risk Score Definition: No Risk: No action required Pain Assessment Pain Scale: 0 Datetime: 05/14/2017 19:00 Labor Evaluation Frequency: X1 Monitor Mode: External Resting Tone [place]: Relaxed Heart Rate FHR Baseline Rate: 140 Monitor Mode: External US FHR Baseline Changes: No Baseline Change Variability: Moderate 6-25 bpm Accelerations: 15X15 Decelerations: None Category: Category I Datetime: 05/14/2017 18:00 Labor Evaluation Frequency: 0 Monitor Mode: External Resting Tone [place]: Relaxed Heart Rate FHR Baseline Rate: 140 Monitor Mode: External US FHR Baseline Changes: No Baseline Change Variability: Moderate 6-25 bpm Accelerations: 15X15 Decelerations: None Category: Category I Datetime: 05/14/2017 17:02 Labor Evaluation Frequency: X1 Monitor Mode: External Resting Tone [place]: Relaxed Heart Rate FHR Baseline Rate: 140 Monitor Mode: External US FHR Baseline Changes: No Baseline Change Variability: Moderate 6-25 bpm Accelerations: 15X15 Decelerations: None Category: Category I Datetime: 05/14/2017 16:13 Stage of : Antepartum Datetime: 05/14/2017 16:07 Stage of : Antepartum Temperature Route: Oral Pain Assessment Pain Scale: 0 Pain Presence: None/Denies Pain Goal: 0 Datetime: 05/14/2017 16:00 Monitor Mode: External Resting Tone [place]: Relaxed Heart Rate FHR Baseline Rate: 130 Monitor Mode: External US FHR Baseline Changes: No Baseline Change Variability: Moderate 6-25 bpm Accelerations: 15X15 Decelerations: None Category: Category I Datetime: 05/14/2017 15:00 Labor Evaluation Frequency: 0 Monitor Mode: External Resting Tone [place]: Relaxed Heart Rate FHR Baseline Rate: 140 Monitor Mode: External US FHR Baseline Changes: No Baseline Change Variability: Moderate 6-25 bpm Accelerations: 15X15 Decelerations: None Category: Category I Datetime: 05/14/2017 14:00 Labor Evaluation Frequency: 0CC Monitor Mode: External Resting Tone [place]: Relaxed Heart Rate FHR Baseline Rate: 140 Monitor Mode: External US FHR Baseline Changes: No Baseline Change Variability: Moderate 6-25 bpm Accelerations: 15X15 Decelerations: None Category: Category I Datetime: 05/14/2017 13:00 Labor Evaluation Frequency: 0 Monitor Mode: External Pattern: Normal: <= 5 Contractions in 10 Minutes Resting Tone [place]: Relaxed Heart Rate FHR Baseline Rate: 140 Monitor Mode: External US FHR Baseline Changes: No Baseline Change Variability: Moderate 6-25 bpm Accelerations: 15X15 Decelerations: None Category: Category I Datetime: 05/14/2017 12:00 Labor Evaluation Frequency: 0 Monitor Mode: External Resting Tone [place]: Relaxed Heart Rate FHR Baseline Rate: 140 Monitor Mode: External US FHR Baseline Changes: No Baseline Change Variability: Moderate 6-25 bpm Accelerations: 15X15 Decelerations: None Category: Category I Datetime: 05/14/2017 11:55 Stage of : Antepartum Temperature Route: Oral Pain Assessment Pain Scale: 0 Pain Presence: None/Denies Datetime: 05/14/2017 11:52 Stage of : Antepartum Datetime: 05/14/2017 11:06 Labor Evaluation Frequency: 0 Monitor Mode: External Heart Rate FHR Baseline Rate: 130 Monitor Mode: External US FHR Baseline Changes: No Baseline Change Variability: Moderate 6-25 bpm Accelerations: 15X15 Decelerations: None Category: Category I Datetime: 05/14/2017 10:09 Labor Evaluation Frequency: 0 Monitor Mode: Internal Resting Tone [place]: Relaxed Heart Rate FHR Baseline Rate: 130 Monitor Mode: External US FHR Baseline Changes: No Baseline Change Variability: Moderate 6-25 bpm Accelerations: 15X15 Decelerations: None Category: Category I Datetime: 05/14/2017 09:00 Labor Evaluation Frequency: 0 Monitor Mode: External Resting Tone [place]: Relaxed Heart Rate FHR Baseline Rate: 130 Monitor Mode: External US FHR Baseline Changes: No Baseline Change Variability: Moderate 6-25 bpm Accelerations: 15X15 Decelerations: None Category: Category I Datetime: 05/14/2017 07:49 Labor Evaluation Frequency: 0 Monitor Mode: External Pattern: Normal: <= 5 Contractions in 10 Minutes Resting Tone [place]: Relaxed Heart Rate FHR Baseline Rate: 125 Monitor Mode: External US FHR Baseline Changes: No Baseline Change Variability: Moderate 6-25 bpm Accelerations: 15X15 Decelerations: None Category: Category I Datetime: 05/14/2017 07:43 Assessment Type: Ongoing Assessment Maternal Assessment Level of Consciousness: Fully Conscious DTR's/Clonus: DTRs 2+; No Clonus Headache: Denies Blurred Vision: No Respiratory Effort: Unlabored; Regular Rhythm; Equal Expansion Breath Sounds, Left: Clear and Equal Breath Sounds, Right: Clear and Equal Nausea/Vomiting: Denies RUQ Epigastric Pain: Denies Lower Extremities Edema: None Degree: None Upper Extremities Edema: None Degree: None Facial Edema: None Fall Risk Assessment History of Falling: (0) No Secondary Diagnosis: (0) No Ambulatory Aid: (0) Bedrest/Nurse Assist IV Therapy: (0) No Gait: (0) Normal/Bedrest/Immobile Mental Status: (0) Oriented to Own Ability Fall Score: 0 Fall Risk Score Definition: No Risk: No action required Datetime: 05/14/2017 07:41 Stage of : Antepartum Temperature Route: Oral Pain Assessment Pain Scale: 0 Pain Presence: None/Denies Pain Goal: 0 Datetime: 05/14/2017 07:38 Stage of : Antepartum Datetime: 05/14/2017 07:19 Stage of : Antepartum Datetime: 05/14/2017 07:00 Labor Evaluation Frequency: SL IRRITABL Monitor Mode: External Duration (sec)2399: 15-40 Quality: Mild Resting Tone [place]: Relaxed Heart Rate FHR Baseline Rate: 120 Monitor Mode: External US FHR Baseline Changes: No Baseline Change Variability: Moderate 6-25 bpm Accelerations: 15X15 Decelerations: None Category: Category I Datetime: 05/14/2017 06:00 Labor Evaluation Frequency: IRREG Monitor Mode: External Duration (sec)2399: 70-80 Quality: Mild Resting Tone [place]: Relaxed Heart Rate FHR Baseline Rate: 120 Monitor Mode: External US FHR Baseline Changes: No Baseline Change Variability: Moderate 6-25 bpm Accelerations: 15X15 Decelerations: None Category: Category I Datetime: 05/14/2017 05:00 Labor Evaluation Frequency: OCC Monitor Mode: External Duration (sec)2399: 30-50 Quality: Mild Resting Tone [place]: Relaxed Heart Rate FHR Baseline Rate: 120 Monitor Mode: External US FHR Baseline Changes: No Baseline Change Variability: Moderate 6-25 bpm Accelerations: 15X15 Decelerations: Variable Category: Category II Datetime: 05/14/2017 04:00 Labor Evaluation Frequency: SL IRRITABL Duration (sec)2399: 20-40 Quality: Mild Resting Tone [place]: Relaxed Heart Rate FHR Baseline Rate: 120 Monitor Mode: External US FHR Baseline Changes: No Baseline Change Variability: Moderate 6-25 bpm Accelerations: 15X15 Decelerations: None Category: Category I Datetime: 05/14/2017 03:00 Labor Evaluation Frequency: 0 Monitor Mode: External Heart Rate FHR Baseline Rate: 115 Monitor Mode: External US FHR Baseline Changes: No Baseline Change Variability: Moderate 6-25 bpm Accelerations: 15X15 Decelerations: None Category: Category I Datetime: 05/14/2017 02:00 Labor Evaluation Frequency: 0 Monitor Mode: External Heart Rate FHR Baseline Rate: 120 Monitor Mode: External US FHR Baseline Changes: No Baseline Change Variability: Moderate 6-25 bpm Accelerations: 15X15 Decelerations: None Category: Category I Datetime: 05/14/2017 01:00 Labor Evaluation Frequency: 0 Monitor Mode: External Heart Rate FHR Baseline Rate: 120 Monitor Mode: External US FHR Baseline Changes: No Baseline Change Variability: Moderate 6-25 bpm Accelerations: 15X15 Decelerations: None Category: Category I Datetime: 05/14/2017 00:00 Labor Evaluation Frequency: 0 Monitor Mode: External Heart Rate FHR Baseline Rate: 120 Monitor Mode: External US FHR Baseline Changes: No Baseline Change Variability: Moderate 6-25 bpm Accelerations: 15X15 Decelerations: None Category: Category I Datetime: 05/13/2017 23:12 Temperature Route: Oral Pain Assessment Pain Scale: 0 Datetime: 05/13/2017 23:00 Labor Evaluation Frequency: 0 Monitor Mode: External Heart Rate FHR Baseline Rate: 120 Monitor Mode: External US FHR Baseline Changes: No Baseline Change Variability: Moderate 6-25 bpm Accelerations: 15X15 Decelerations: None Category: Category I Datetime: 05/13/2017 22:00 Labor Evaluation Frequency: 0 Monitor Mode: External Heart Rate FHR Baseline Rate: 130 Monitor Mode: External US FHR Baseline Changes: No Baseline Change Variability: Moderate 6-25 bpm Accelerations: 15X15 Decelerations: None Category: Category I Datetime: 05/13/2017 21:00 Labor Evaluation Frequency: 0 Monitor Mode: External Heart Rate FHR Baseline Rate: 135 Monitor Mode: External US FHR Baseline Changes: No Baseline Change Variability: Moderate 6-25 bpm Accelerations: 15X15 Decelerations: None Category: Category I Datetime: 05/13/2017 20:00 Labor Evaluation Frequency: X1 Monitor Mode: External Duration (sec)2399: 50 Quality: Mild Resting Tone [place]: Relaxed Heart Rate FHR Baseline Rate: 140 Monitor Mode: External US FHR Baseline Changes: No Baseline Change Variability: Moderate 6-25 bpm Accelerations: 15X15 Decelerations: None Category: Category I Datetime: 05/13/2017 19:31 Stage of : Antepartum Assessment Type: Ongoing Assessment Maternal Assessment Level of Consciousness: Fully Conscious Headache: Denies Blurred Vision: No Respiratory Effort: Unlabored; Regular Rhythm; Equal Expansion Nausea/Vomiting: Denies RUQ Epigastric Pain: Denies Lower Extremities Edema: None Upper Extremities Edema: None Facial Edema: None Temperature Route: Oral Fall Risk Assessment History of Falling: (0) No Secondary Diagnosis: (0) No Ambulatory Aid: (0) Bedrest/Nurse Assist IV Therapy: (20) Yes Gait: (0) Normal/Bedrest/Immobile Mental Status: (0) Oriented to Own Ability Fall Score: 20 Fall Risk Score Definition: No Risk: No action required Pain Assessment Pain Scale: 0 Datetime: 05/13/2017 19:01 Labor Evaluation Frequency: 1 Monitor Mode: External Duration (sec)2399: 90 Quality: Mild Resting Tone [place]: Relaxed Heart Rate FHR Baseline Rate: 140 Monitor Mode: External US FHR Baseline Changes: No Baseline Change Variability: Moderate 6-25 bpm Accelerations: 15X15 Decelerations: Variable Category: Category II Datetime: 05/13/2017 18:05 Labor Evaluation Frequency: 0 Monitor Mode: External Resting Tone [place]: Relaxed Heart Rate FHR Baseline Rate: 140 Monitor Mode: External US FHR Baseline Changes: No Baseline Change Variability: Moderate 6-25 bpm Accelerations: 15X15 Decelerations: None Category: Category I Datetime: 05/13/2017 16:37 Labor Evaluation Frequency: 0 Monitor Mode: External Resting Tone [place]: Relaxed Heart Rate FHR Baseline Rate: 140 Monitor Mode: External US FHR Baseline Changes: No Baseline Change Variability: Moderate 6-25 bpm Accelerations: 15X15 Decelerations: None Category: Category I Pain Presence: None/Denies Datetime: 05/13/2017 16:26 Time of Arrival: 05/13/2017 16:26 EGA: 35.3 Arrived By: Wheelchair Arrived From: Other Unit in Hospital Datetime: 05/13/2017 15:00 Labor Evaluation Frequency: 1-3 Monitor Mode: External Duration (sec)2399: 50-100 Quality: Mild Pattern: Normal: <= 5 Contractions in 10 Minutes Resting Tone [place]: Relaxed Heart Rate FHR Baseline Rate: 140 Monitor Mode: External US FHR Baseline Changes: No Baseline Change Variability: Moderate 6-25 bpm Accelerations: 15X15 Decelerations: None Category: Category I Pain Presence: None/Denies Datetime: 05/13/2017 14:00 Labor Evaluation Frequency: 2-4 Monitor Mode: External Duration (sec)2399: 60-100 Quality: Mild Pattern: Normal: <= 5 Contractions in 10 Minutes Resting Tone [place]: Relaxed Heart Rate FHR Baseline Rate: 150 Monitor Mode: External US FHR Baseline Changes: No Baseline Change Variability: Moderate 6-25 bpm Accelerations: 15X15 Decelerations: None Category: Category I Pain Presence: None/Denies Datetime: 05/13/2017 13:54 Vaginal Exam Dilatation (cms): 0.0 Effacement (%): 0 Station: -3 Exam By: Merline RN Datetime: 05/13/2017 13:25 Stage of : OB Triage
--- NOTE | 2017-05-19 22:36 | PN ---
Triage Information Date/Time 05/19/17 Reason for visit: Oligohydramnios Weeks of Gestation 36w2d /Para primigravida Diabetes: none Hypertention: none Objective Vital Signs Date Time Temp Pulse Resp B/P Pulse Ox O2 Delivery O2 Flow Rate FiO2 05/19/17 15:16 99.2 96 18 107/62 Heart Rate: 150's Contractions: None Results/Medications Medications Current Medications Lactated Ringer's (Lr) 1,000 ml @ 200 mls/hr Q5H IV Last administered on t 18:33; Admin Dose 200 MLS/HR; Start 05/19/17 at 15:17 Imaging Results ANA 6 sent here for IV hydration and repeat ANA 4hr after which was 7.3 Disposition: Discharge Assessment/Plan IUP 36w2d oligohydramnios PLAN RTH in 2days for repeat ANA with routine labor instructions encourage to intake more water GENARO MALLORY MD May 19, 2017 22:36
== END 2017-05-19 21:42 | disposition home or self-care (01) ==
LOC: OBT 15:08 → L-D 15:10 → OBT 21:42
PROVIDERS: ATTEND Obstetrics & Gynecology
DX: O41.03X0 Oligohydramnios, third trimester, not applicable or unspecified (principal); Z3A.36 36 weeks gestation of pregnancy
CPT/HCPCS: 36415; 76815; 96360; 96361; G0463; J7120

== ENCOUNTER 2017-05-21 14:30 | Outpatient (CLI) | payer MEDICAID ==
[~2017-05-21] VITALS: Ht 157.5 cm; Wt 62.0 kg
[2017-05-21 14:45] VITALS: BP 103/66; PULSE 88; RESP 18
[2017-05-21] MEDS ORDERED: FER325 PO (14:45)
[2017-05-21] MEDS ORDERED: PREN1TAB79 PO (14:45)
[2017-05-21 14:47] VITALS: Ht 157.5 cm; Wt 62.0 kg
--- NOTE | 2017-05-21 15:36 | RADRPT ---
PROCEDURE: US OB biophysical profile. CLINICAL INDICATION: decreased movements TECHNIQUE: Multiple sonographic images of the pelvis were obtained. The images were reviewed on a PACS workstation. COMPARISON: 05/19/17 FINDINGS: There is a single viable intrauterine gestation. Cardiac activity is present with 134 beats per min ekta. There is a vertex presentation. The placenta is anterior. There is no evidence of placental abruption. There is a decreased amount of amniotic fluid with an ANA = 6.9 cm. Biophysical profile: movement 2/2 tone 2/2. breathing 2/2 ANA 2/2 Total 04/05 RPTAT: AA . IMPRESSION: Normal biophysical profile. Oligohydramnios. . .Diaz Bobby MD, MD Date Time Electronically viewed and signed by .Diaz Bobby MD, MD on 05/21/2017 15:36 .S/
[2017-05-21] MEDS ORDERED: LACTATED RINGER'S 1,000 ML IV ONE (16:00)
--- NOTE | 2017-05-21 17:47 | PN ---
Triage Information Date/Time May 21, 2017 Reason for visit: Oligohydramnios Weeks of Gestation 36w 4d /Para 1/0 Diabetes: none Hypertention: none Additional information Pt has been followed for low normal amniotic fluid. Has an appt in [facility] clinic . PMHx: none. PSHx: none. NKDA. Objective Vital Signs Date Time Temp Pulse Resp B/P Pulse Ox O2 Delivery O2 Flow Rate FiO2 05/21/17 14:45 97.5 88 18 103/66 99 Room Air Heart Rate: 140's Results/Medications Imaging Results BPP 6.9 cm BPP 8/8. VTX. Disposition: Discharge Assessment/Plan A: IUP at 36w 4d. Oligohydramnios. Low normal fluid. P: One liter IVF's given as a bolus now as her urine is a little bit dark. Then D/C home and pt to keep appt 05/23. CHRISTOPHER BUTT MD May 21, 2017 17:47
== END 2017-05-21 17:00 | disposition home or self-care (01) ==
LOC: OBT 14:30 → L-D 14:31 → OBT 17:00
PROVIDERS: ATTEND Obstetrics & Gynecology
DX: O41.03X0 Oligohydramnios, third trimester, not applicable or unspecified (principal); Z3A.36 36 weeks gestation of pregnancy
CPT/HCPCS: 36415; 76818; 96360; J7120; Z7500; G0463

== ENCOUNTER 2017-05-30 15:22 | Inpatient (IN) | payer MEDICAID ==
[~2017-05-30] VITALS: Ht 157.5 cm; Wt 62.7 kg
[~2017-05-30 15:22] MED LIST: FER325 PO; PREN1TAB79 PO
[2017-05-30 16:09] VITALS: Ht 157.5 cm; Wt 62.7 kg
[2017-05-30 16:10] VITALS: BP 109/67; PULSE 76; RESP 20
[2017-05-30] MEDS: LACTATED RINGER'S 1,000 ML IV SCH ×3 (16:44→22:44)
--- NOTE | 2017-05-30 16:52 | RADRPT ---
PROCEDURE: US OB biophysical profile. CLINICAL INDICATION: decreased movements, contractions TECHNIQUE: Multiple sonographic images of the pelvis were obtained. The images were reviewed on a PACS workstation. COMPARISON: US PELVIS 05/21/2017 FINDINGS: There is a single viable intrauterine gestation. Cardiac activity is present with 131 beats per min ekta. There is a vertex presentation. The placenta is anterior. There is no evidence of placental abruption. There is a decreased amount of amniotic fluid with an ANA = 4.0 cm. Biophysical profile: movement 2/2 tone 2/2. breathing 2/2 ANA 0/2 Total 02/03 RPTAT: AA . IMPRESSION: Abnormal biophysical profile. Oligohydramnios. . .Diaz Bobby MD, Date Time Electronically viewed and signed by .Diaz Bobby MD, on 05/30/2017 16:52 .S/
[2017-05-30 17:03] LABS: ADD UMIC YES; UR ASCORBIC ACID NEGATIVE (NEGATIVE); UR BACTERIA FEW /HPF (NONE SEEN); UR BILIRUBIN (Dip) NEGATIVE (NEGATIVE); UR BLOOD (Dip) NEGATIVE (NEGATIVE); UR CLARITY CLEAR (CLEAR); UR COLOR COLORLESS (YELLOW); UR GLUCOSE (Dip) NEGATIVE (NEGATIVE); UR KETONES (Dip) NEGATIVE (NEGATIVE); UR LEUKOCYTE ESTERASE (Dip) 1+ Leu/ul (NEGATIVE); UR NITRITE (Dip) NEGATIVE (NEGATIVE); UR RBC 0 /HPF (0-5); UR SPECIFIC GRAVITY (Dip) 1.002 (1.003-1.030); UR TOTAL PROTEIN (Dip) NEGATIVE (NEGATIVE); UR UROBILINOGEN (Dip) NEGATIVE (NEGATIVE)
--- NOTE | 2017-05-30 17:56 | RADRPT ---
PROCEDURE: US OB. CLINICAL INDICATION: Oligohydramnios. TECHNIQUE: Multiple sonographic images of the uterus were obtained. The images were revi ewed on a PACS workstation. COMPARISON: No prior studies are available for comparison. FINDINGS: There is a single live intrauterine gestation. heart rate is 121 beats per minute. Measurements were made in order to determine age. The results are as follows: BPD = 8.58 cm. HC = 30.54 cm. AC = 34.41 cm. FL = 7.46 cm. Estimated weight is 3171 +/- 476 grams. LMP growth percentile is 47 %. Menstrual age by ultrasound dates is 36 weeks 2 days. The estimated date of delivery is 06/25/2017. Position is cephalic and placenta is anterior grade II. There is no evidence for an abruption or randy centa previa. There is almost no amniotic fluid visualized. IMPRESSION: 1. Single live intrauterine gestation of 36 weeks 2 days menstrual age by ultrasound dates. 2. The estimated date of delivery is 06/25/2017. 3. Severe oligohydramnios. RPTAT: QQ .Ravi Swan MD, Date Time Electronically viewed and signed by .Ravi Swan MD, on 05/30/2017 17:55 .R/
[2017-05-30] MEDS ORDERED: LACTATED RINGER'S 1,000 ML IV PRN (18:00)
[2017-05-30] MEDS ORDERED: LIDOCAINE 1% (MPF) 30 ML INJ INJ PRN (18:00)
[2017-05-30] MEDS ORDERED: AMPICILLIN 2 GM/NS (PMX) 100 ML IV ONE (18:00)
[2017-05-30] MEDS ORDERED: MISOPROSTOL 25 MCG CAPSULE VAG PRN (18:00)
[2017-05-30] MEDS ORDERED: METHYLERGONOVINE 0.2 MG INJ IM PRN (18:00)
[2017-05-30] MEDS ORDERED: OXYTOCIN 30 UNITS/LR 500 ML IV SCH ×2 (18:00)
[2017-05-30] MEDS ORDERED: OXYTOCIN 30 UNITS/LR 500 ML IV PRN (18:00)
[2017-05-30] MEDS ORDERED: CARBOPROST 250 MCG INJ IM PRN (18:00)
[2017-05-30] MEDS ORDERED: MISOPROSTOL 200 MCG TAB PR PRN (18:00)
[2017-05-30] MEDS ORDERED: BUTORPHANOL 2 MG INJ IV PRN (18:00)
[2017-05-30] MEDS ORDERED: MISOPROSTOL 25 MCG CAPSULE PO PRN (18:30)
[2017-05-30 18:34] LABS: BASOPHILS % 0.3 % (0.0-2.0); EOSINOPHILS # 0.1 10^3/ul (0.0-0.5); HEMATOCRIT 32.4 % (37.0-47.0); HEMOGLOBIN 10.5 g/dl (12.0-16.0); LYMPHOCYTES # 1.9 10^3/ul (0.8-2.9); LYMPHOCYTES % 16.7 % (15.0-51.0); MEAN CORPUSCULAR HEMOGLOBIN 27.6 pg (29.0-33.0); MEAN CORPUSCULAR HGB CONC 32.4 g/dl (32.0-37.0); MEAN CORPUSCULAR VOLUME 85.3 fl (82.0-101.0); MEAN PLATELET VOLUME 8.9 fl (7.4-10.4); MONOCYTE # 0.7 10^3/ul (0.3-0.9); MONOCYTES % 5.7 % (0.0-11.0); NEUTROPHIL # 8.8 10^3/ul (1.6-7.5); NEUTROPHILS % 75.9 % (39.0-77.0); PLATELET COUNT 306 10^3/UL (140-415); RED CELL DISTRIBUTION WIDTH 13.2 % (11.5-14.5); WHITE BLOOD COUNT 11.6 10^3/ul (4.8-10.8)
--- NOTE | 2017-05-30 18:39 | TRIAGE ---
OB Triage Datetime Report Generated by CPN: 05/30/2017 18:38 Datetime: 05/30/2017 18:32 Labor Evaluation Frequency: 1.5-4 Monitor Mode: External Duration (sec)2399: 40-90 Quality: Mild Pattern: Normal: <= 5 Contractions in 10 Minutes Resting Tone [place]: Relaxed Heart Rate FHR Baseline Rate: 135 Monitor Mode: External US Variability: Moderate 6-25 bpm Accelerations: 15X15 Decelerations: None Category: Category I Datetime: 05/30/2017 17:34 Labor Evaluation Frequency: 1.5-3 Monitor Mode: External Duration (sec)2399: 50-90 Quality: Moderate Pattern: Normal: <= 5 Contractions in 10 Minutes Resting Tone [place]: Relaxed Heart Rate FHR Baseline Rate: 125 Monitor Mode: External US Variability: Moderate 6-25 bpm Accelerations: 15X15 Decelerations: None Category: Category I Datetime: 05/30/2017 16:28 Labor Evaluation Frequency: IRREG Monitor Mode: External Duration (sec)2399: 50-90 Quality: Moderate Pattern: Normal: <= 5 Contractions in 10 Minutes Resting Tone [place]: Relaxed Heart Rate FHR Baseline Rate: 135 Monitor Mode: External US Variability: Moderate 6-25 bpm Accelerations: 15X15 Decelerations: None Category: Category I Datetime: 05/30/2017 16:16 Vaginal Exam Dilatation (cms): 0.5 Effacement (%): 50 Station: -1 Exam By: ogbodu rn Datetime: 05/30/2017 16:13 Maternal Assessment Level of Consciousness: Fully Conscious DTR's/Clonus: DTRs 2+; No Clonus Headache: Denies Blurred Vision: No Respiratory Effort: Unlabored; Regular Rhythm; Equal Expansion Breath Sounds, Left: Clear and Equal Breath Sounds, Right: Clear and Equal Nausea/Vomiting: Denies RUQ Epigastric Pain: Denies Facial Edema: None Fall Risk Assessment History of Falling: (0) No Secondary Diagnosis: (0) No Ambulatory Aid: (0) Bedrest/Nurse Assist IV Therapy: (0) No Gait: (0) Normal/Bedrest/Immobile Mental Status: (0) Oriented to Own Ability Fall Score: 0 Fall Risk Score Definition: No Risk: No action required Datetime: 05/30/2017 16:12 Stage of : OB Triage Maternal Assessment Level of Consciousness: Fully Conscious DTR's/Clonus: DTRs 2+; No Clonus Headache: Denies Blurred Vision: No Respiratory Effort: Unlabored; Regular Rhythm; Equal Expansion Breath Sounds, Left: Clear and Equal Breath Sounds, Right: Clear and Equal Nausea/Vomiting: Denies RUQ Epigastric Pain: Denies Lower Extremities Edema: None Degree: None Upper Extremities Edema: None Degree: None Facial Edema: None Temperature Route: Axillary Fall Risk Assessment History of Falling: (0) No Secondary Diagnosis: (0) No Ambulatory Aid: (0) Bedrest/Nurse Assist IV Therapy: (20) Yes Gait: (0) Normal/Bedrest/Immobile Mental Status: (0) Oriented to Own Ability Fall Score: 20 Fall Risk Score Definition: No Risk: No action required Labor Evaluation Frequency: 1-3 Monitor Mode: External Duration (sec)2399: 50-90 Quality: Strong Pattern: Normal: <= 5 Contractions in 10 Minutes Resting Tone [place]: Relaxed Heart Rate FHR Baseline Rate: 125 Monitor Mode: External US Variability: Moderate 6-25 bpm Accelerations: 15X15 Decelerations: None Category: Category I Datetime: 05/30/2017 15:58 Time of Arrival: 05/30/2017 15:17 EGA: 37.6 Arrived By: Ambulatory Arrived From: Other Unit in Hospital Chief Complaint: FROM NST WITH LOW ANA Movement: Present Contractions: Denies/Absent Rupture of Membranes: Denies Vaginal Bleeding: None Vaginal Discharge: Denies Recent Sexual Intercouse: Denies Abdominal Trauma: Not Applicable Patient Complaints: Cramping Time Provider Notified: 05/30/2017 17:32 Provider Notified: DR. ROSA Initial Plan: IV HYDRATION NST Pain Assessment Pain Scale: 1 Pain Presence: Intermittent Pain Type: Contraction Pain Location: Abdomen; Back Pain Goal: 0 Pain Relief Measures: Comfort Measures Datetime: 05/21/2017 16:00 Stage of : OB Triage Maternal Assessment Level of Consciousness: Fully Conscious Labor Evaluation Frequency: OCCASIONAL Monitor Mode: External Duration (sec)2399: 30-90 Quality: Mild Resting Tone [place]: Relaxed Heart Rate FHR Baseline Rate: 135 Monitor Mode: External US Variability: Moderate 6-25 bpm Accelerations: 15X15 Decelerations: None Pain Assessment Pain Scale: 0 Pain Goal: 3 Membrane Status: Intact Vaginal Bleeding: None Datetime: 05/21/2017 15:30 Stage of : OB Triage Maternal Assessment Level of Consciousness: Fully Conscious Labor Evaluation Frequency: OCCASIONAL Monitor Mode: External Duration (sec)2399: 30-130 Quality: Mild Resting Tone [place]: Relaxed Heart Rate FHR Baseline Rate: 135 Monitor Mode: External US Variability: Moderate 6-25 bpm Accelerations: 15X15 Decelerations: None Category: Category I Pain Assessment Pain Scale: 0 Pain Goal: 3 Membrane Status: Intact Vaginal Bleeding: None Datetime: 05/21/2017 14:42 Assessment Type: Triage Maternal Assessment Level of Consciousness: Fully Conscious DTR's/Clonus: DTRs 2+; No Clonus Headache: Denies Blurred Vision: No Respiratory Effort: Unlabored; Regular Rhythm; Equal Expansion Breath Sounds, Left: Clear and Equal Breath Sounds, Right: Clear and Equal Nausea/Vomiting: Denies RUQ Epigastric Pain: Denies Lower Extremities Edema: None Degree: None Upper Extremities Edema: None Degree: None Facial Edema: None Fall Risk Assessment History of Falling: (0) No Secondary Diagnosis: (0) No Ambulatory Aid: (0) Bedrest/Nurse Assist IV Therapy: (20) Yes Gait: (0) Normal/Bedrest/Immobile Mental Status: (0) Oriented to Own Ability Fall Score: 20 Fall Risk Score Definition: No Risk: No action required Datetime: 05/21/2017 14:40 Monitor Mode: External Monitor Mode: External US Datetime: 05/21/2017 14:36 Time of Arrival: 05/21/2017 14:25 EGA: 36.4 Arrived By: Ambulatory Arrived From: Home Chief Complaint: PT HERE FOR NST/BPP FOR LOW ANA Movement: Present Contractions: Denies/Absent Rupture of Membranes: Denies Vaginal Bleeding: None Vaginal Discharge: Denies Recent Sexual Intercouse: Denies Abdominal Trauma: Not Applicable Patient Complaints: None Time Provider Notified: 05/21/2017 15:50 Provider Notified: REICHE Initial Plan: BPP/NST/IV HYDRATION Datetime: 05/19/2017 15:20 Fall Score: 20 Fall Risk Score Definition: No Risk: No action required Datetime: 05/19/2017 15:19 EGA: 36.2 Datetime: 05/16/2017 07:58 Fall Score: 20 Fall Risk Score Definition: No Risk: No action required Datetime: 05/15/2017 19:43 Fall Score: 20 Fall Risk Score Definition: No Risk: No action required Datetime: 05/15/2017 07:52 Fall Score: 20 Fall Risk Score Definition: No Risk: No action required Datetime: 05/14/2017 19:47 Fall Score: 20 Fall Risk Score Definition: No Risk: No action required Datetime: 05/14/2017 07:43 Fall Score: 0 Fall Risk Score Definition: No Risk: No action required Datetime: 05/13/2017 19:31 Fall Score: 20 Fall Risk Score Definition: No Risk: No action required Datetime: 05/13/2017 16:26 EGA: 35.3
[2017-05-30 18:54] LABS: INR 0.91; PROTIME 12.2 Sec (12.2-14.2)
[2017-05-30 19:06] LABS: ALANINE AMINOTRANSFERASE 27 IU/L (13-69); ALBUMIN 3.1 g/dl (3.3-4.9); ALBUMIN/GLOBULIN RATIO 0.79; ALKALINE PHOSPHATASE 237 IU/L (42-121); ANION GAP 7 (8-16); ASPARTATE AMINO TRANSFERASE 20 IU/L (15-46); BILIRUBIN,INDIRECT 0.1 mg/dl (0-1.1); BILIRUBIN,TOTAL 0.1 mg/dl (0.2-1.3); BLOOD UREA NITROGEN 11 mg/dl (7-20); CALCIUM 9.2 mg/dl (8.4-10.2); CARBON DIOXIDE 24 mmol/L (21-31); CHLORIDE 107 mmol/L (97-110); CREATININE 0.62 mg/dl (0.44-1.00); GLUCOSE 92 mg/dl (70-220); POTASSIUM 3.4 mmol/L (3.5-5.1); SODIUM 135 mmol/L (135-144)
[2017-05-30 19:11] LABS: PARTIAL THROMBOPLASTIN TIME 27.5 Sec (25.0-35.0)
[2017-05-30] MEDS ORDERED: AMPICILLIN 1 GM/NS (PMX) 50 ML IV SCH (22:00)
[2017-05-31] MEDS: LACTATED RINGER'S 1,000 ML IV SCH ×2 (04:36→12:26)
--- NOTE | 2017-05-31 10:55 | NSTRPT ---
NST Information Datetime Report Generated by CPN: 05/31/2017 10:55 Datetime: 05/30/2017 14:00 NST Information EGA: 37.6 Test Number: 4 Time on Monitor: 05/30/2017 14:25 Time off Monitor: 05/30/2017 14:50 NST Duration (Min): 25 Reason for NST: Oligohydramnios Test and Monitor Explained: Monitor Explained; Test Explained; Verbalized Understanding; Breastfee ding Info Given Pulse: 76 Resp: 20 SBP: 110 DBP: 59 Test Evaluation NST Interventions: None Patient States Movement: Present Contraction Frequency: occasional FHR Baseline : 130 Variability: Moderate 6-25bpm Accelerations: 15X15 Decelerations: None FHR Category: Category I NST Results: Reactive Comments: To u/s. ANA 6.8, cephalic presentation. EFM on. Pt to hospital for IV hydration per Dr Washington's orders. Pt has no questions. 1500-Pt to Triage, with follow up NST appt for 06/02 at 1430 Electronically Signed By E-Signature: with User ID: [id number] Datetime: 05/26/2017 14:17 NST Information EGA: 37.2 NST Duration (Min): 30 Datetime: 05/23/2017 10:51 NST Information EGA: 36.6 NST Duration (Min): 41 Datetime: 05/19/2017 13:35 NST Information EGA: 36.2 NST Duration (Min): 44
[2017-05-31] MEDS ORDERED: OXYTOCIN 30 UNITS/LR 500 ML IV SCH (11:30)
[2017-05-31] MEDS: BUTORPHANOL 2 MG INJ IV PRN ×2 (13:28→15:06)
--- NOTE | 2017-05-31 16:56 | LDN ---
Date/Time of Note Date/Time of Note DATE: 05/31/17 TIME: 16:54 Delivery Summary Weeks of Gestation 38 Placenta Delivered: Spontaneously Meconium: none Episiotomy: Yes Laceration repair: rmle repair with 2-0 and 3-0 chromic Anesthesia type: Local Estimated blood loss: 200 Sponge & Needle done & correct: Yes All needle counts correct: Yes Any foreign bodies felt in the: No Problems: Infant Delivery Information Sex Sex: female Apgars 1 Minute: 8 5 Minute: 9 Suctioning Nose & mouth suctioned at britta: No Delee suction performed: No Umbilical Cord Umbilical cord with: 3 Vessels Cord presentations: no nuchal cord Cord Blood was obtained: Yes MARIKA ROSA MD May 31, 2017 16:56
[2017-05-31] MEDS ORDERED: MAGNESIUM HYDROXIDE 30ML CUP PO PRN (17:00)
[2017-05-31] MEDS ORDERED: OXYCODONE/ASPIRIN (4.88/325) TAB PO PRN ×2 (17:00)
[2017-05-31] MEDS ORDERED: METHYLERGONOVINE 0.2 MG INJ IM PRN (17:00)
[2017-05-31] MEDS ORDERED: CARBOPROST 250 MCG INJ IM PRN (17:00)
[2017-05-31] MEDS ORDERED: BENZOCAINE 20% 56 ML SPRAY TOP PRN (17:00)
[2017-05-31] MEDS ORDERED: DIBUCAINE 1% 30 GM OINT PR PRN (17:00)
[2017-05-31] MEDS ORDERED: ONDANSETRON 4 MG INJ IV PRN (17:00)
[2017-05-31] MEDS ORDERED: OXYTOCIN 30 UNITS/LR 500 ML IV PRN (17:00)
[2017-05-31] MEDS ORDERED: DIPHENHYDRAMINE 25 MG CAP PO PRN (17:00)
[2017-05-31] MEDS ORDERED: MISOPROSTOL 200 MCG TAB PR PRN (17:00)
[2017-05-31] MEDS ORDERED: WITCH HAZEL/GLYCERIN PAD PR PRN (17:00)
[2017-05-31] MEDS ORDERED: LANOLIN 7 GM TUBE TOP PRN (17:00)
[2017-05-31 18:30] VITALS: BP 115/82; PULSE 80; RESP 18
[2017-05-31] MEDS: LACTATED RINGER'S 1,000 ML IV* SCH (18:54)
[2017-05-31] MEDS: IBUPROFEN 600 MG TAB PO SCH (18:54)
[2017-05-31 20:00] VITALS: BP 104/63; PULSE 66; RESP 19
[2017-05-31] MEDS: MAGNESIUM HYDROXIDE 30ML CUP PO SCH (21:00)
[2017-05-31] MEDS: SENNA/DOCUSATE NA (8.6MG/50MG) TAB PO SCH (21:00)
[2017-06-01] MEDS: IBUPROFEN 600 MG TAB PO SCH ×4 (00:31→18:20)
[2017-06-01 04:15] VITALS: BP 103/65; PULSE 72; RESP 19
[2017-06-01] MEDS: LACTATED RINGER'S 1,000 ML IV* SCH (04:57)
--- NOTE | 2017-06-01 06:54 | HP ---
DATE OF ADMISSION: HISTORY OF PRESENT ILLNESS: The patient is a 21-year-old, 1, para 0, EDC 06/14/2017, intrauterine at 37 weeks and 6 days gestational age, admitted for induction secondary to oligohydramnios. She denies any vaginal bleeding or discharge. PAST MEDICAL HISTORY: None. MEDICATIONS: vitamins. PAST SURGICAL HISTORY: None. OBSTETRICAL HISTORY: Primigravida. GYNECOLOGICAL HISTORY: 12/regular/3-4 days. Denies any sexually transmitted disease. Sexually active with 1 partner. SOCIAL HISTORY: Denies any smoking, drugs, or alcohol. FAMILY HISTORY: None. REVIEW OF SYSTEMS: All within normal, except history of present illness. PHYSICAL EXAMINATION: HEENT: Within normal limits. CVS: S1, S2. Regular rhythm. ABDOMEN: Gravid and nontender. Negative CVAT bilaterally. EXTREMITIES: Negative edema. No calf tenderness. VAGINAL: Exam is fingertip 50 percent effaced, -1 station. ANA of 4.0 cm. ASSESSMENT: Intrauterine at term with oligohydramnios. PLAN: Cytotec for cervical ripening, followed by Pitocin. Dictated By: Gutierrez Washington MD /zoran/sourav /Document#: [id number] [place]
[2017-06-01 08:30] VITALS: BP 103/62; PULSE 61; RESP 16
[2017-06-01 09:12] LABS: BASOPHILS % 0.3 % (0.0-2.0); EOSINOPHILS # 0.1 10^3/ul (0.0-0.5); EOSINOPHILS % 0.6 % (0.0-7.0); HEMATOCRIT 30.6 % (37.0-47.0); LYMPHOCYTES # 2.1 10^3/ul (0.8-2.9); LYMPHOCYTES % 17.8 % (15.0-51.0); MEAN CORPUSCULAR HEMOGLOBIN 28.2 pg (29.0-33.0); MEAN CORPUSCULAR HGB CONC 32.7 g/dl (32.0-37.0); MEAN CORPUSCULAR VOLUME 86.2 fl (82.0-101.0); MEAN PLATELET VOLUME 8.7 fl (7.4-10.4); MONOCYTE # 0.7 10^3/ul (0.3-0.9); MONOCYTES % 6.3 % (0.0-11.0); NEUTROPHIL # 8.8 10^3/ul (1.6-7.5); NEUTROPHILS % 74.4 % (39.0-77.0); PLATELET COUNT 269 10^3/UL (140-415); RED BLOOD COUNT 3.55 10^6/ul (4.20-5.40); RED CELL DISTRIBUTION WIDTH 13.4 % (11.5-14.5); WHITE BLOOD COUNT 11.8 10^3/ul (4.8-10.8)
[2017-06-01] MEDS: MAGNESIUM HYDROXIDE 30ML CUP PO SCH ×2 (09:27→21:14)
[2017-06-01] MEDS: SENNA/DOCUSATE NA (8.6MG/50MG) TAB PO SCH ×2 (09:27→21:14)
[2017-06-01 12:00] VITALS: BP 115/62; PULSE 62; RESP 18
[2017-06-01 16:15] VITALS: BP 111/70; PULSE 62; RESP 19
[2017-06-01 20:00] VITALS: BP 108/61; PULSE 65; RESP 16
--- NOTE | 2017-06-01 22:21 | PN ---
Date/Time of Note Date/Time of Note DATE: 06/01/17 TIME: 22:18 OB Subjective Subjective Subjective Patient breast-feeding. Denies any complaints. Urinated without any problem. Vaginal bleeding decreased. Denies any depressive symptoms. Ambulated without any symptom. OB Objective Objective Objective Hematology - 72 Hrs Test 05/30/17 18:17 06/01/17 08:59 White Blood Count 11.610^3/ul (4.8-10.8) H 11.810^3/ul (4.8-10.8) H Red Blood Count 3.8010^6/ul (4.20-5.40) L 3.5510^6/ul (4.20-5.40) L Hemoglobin 10.5g/dl (12.0-16.0) L 10.0g/dl (12.0-16.0) L Hematocrit 32.4% (37.0-47.0) L 30.6% (37.0-47.0) L Mean Corpuscular Volume 85.3fl (82.0-101.0) 86.2fl (82.0-101.0) Mean Corpuscular Hemoglobin 27.6pg (29.0-33.0) L 28.2pg (29.0-33.0) L Mean Corpuscular Hemoglobin Concent 32.4g/dl (32.0-37.0) 32.7g/dl (32.0-37.0) Red Cell Distribution Width 13.2% (11.5-14.5) 13.4% (11.5-14.5) Platelet Count 26594^3/UL (140-415) 46165^3/UL (140-415) Mean Platelet Volume 8.9fl (7.4-10.4) 8.7fl (7.4-10.4) Neutrophils % 75.9% (39.0-77.0) 74.4% (39.0-77.0) Lymphocytes % 16.7% (15.0-51.0) 17.8% (15.0-51.0) Monocytes % 5.7% (0.0-11.0) 6.3% (0.0-11.0) Eosinophils % 1.0% (0.0-7.0) 0.6% (0.0-7.0) Basophils % 0.3% (0.0-2.0) 0.3% (0.0-2.0) Nucleated Red Blood Cells % 0.0/100WBC (0.0-0.0) 0.0/100WBC (0.0-0.0) Neutrophils # 8.810^3/ul (1.6-7.5) H 8.810^3/ul (1.6-7.5) H Lymphocytes # 1.910^3/ul (0.8-2.9) 2.110^3/ul (0.8-2.9) Monocytes # 0.710^3/ul (0.3-0.9) 0.710^3/ul (0.3-0.9) Eosinophils # 0.110^3/ul (0.0-0.5) 0.110^3/ul (0.0-0.5) Basophils # 0.010^3/ul (0.0-0.1) 0.010^3/ul (0.0-0.1) Nucleated Red Blood Cells # 0.010^3/ul (0.0-0.0) 0.010^3/ul (0.0-0.0) Chemistry Test 05/30/17 18:17 Sodium Level 135mmol/L (135-144) Potassium Level 3.4mmol/L (3.5-5.1) L Chloride Level 107mmol/L (97-110) Carbon Dioxide Level 24mmol/L (21-31) Anion Gap 7 (8-16) L Blood Urea Nitrogen 11mg/dl (7-20) Creatinine 0.62mg/dl (0.44-1.00) Glucose Level 92mg/dl (70-220) Calcium Level 9.2mg/dl (8.4-10.2) Total Bilirubin 0.1mg/dl (0.2-1.3) L Direct Bilirubin 0.00mg/dl (0.00-0.20) Indirect Bilirubin 0.1mg/dl (0-1.1) Aspartate Amino Transf (AST/SGOT) 20IU/L (15-46) Alanine Aminotransferase (ALT/SGPT) 27IU/L (13-69) Alkaline Phosphatase 237IU/L (42-121) H Total Protein 7.0g/dl (6.1-8.1) Albumin 3.1g/dl (3.3-4.9) L Globulin 3.90g/dl (1.3-3.2) H Albumin/Globulin Ratio 0.79 General appearance: Alert and oriented 4. Patient does not appear to be in any acute distress Breasts: Evidence of bilateral nipple fissure seen. No evidence of mastitis. No evidence of breast engorgement Abdomen: Soft, fundus firm, no fundal tenderness No abdominal tenderness or rebound tenderness or guarding or rigidity Extremities: No calf tenderness, no click no edema OB Assessment/Plan Other Assessment: Status post day #1 Doing well Mild anemia. Asymptomatic Denies any symptoms Nipple fissure. Recommended to have consultation again Anticipate DC home tomorrow HUEY RIBEIRO MD Jun 01, 2017 22:20
[2017-06-02] MEDS: IBUPROFEN 600 MG TAB PO SCH ×4 (00:19→17:37)
[2017-06-02 04:45] VITALS: BP 99/62; PULSE 61; RESP 16
[2017-06-02 08:00] VITALS: BP 95/50; PULSE 58; RESP 18
[2017-06-02] MEDS ORDERED: INFLUENZA VIRUS VACCINE 0.5 ML (DISPENSING) IM* ONE (09:00)
[2017-06-02] MEDS: MAGNESIUM HYDROXIDE 30ML CUP PO SCH (09:28)
[2017-06-02] MEDS: SENNA/DOCUSATE NA (8.6MG/50MG) TAB PO SCH (09:28)
[2017-06-02 16:00] VITALS: BP 114/68; PULSE 65; RESP 17
--- NOTE | 2017-06-02 18:09 | PD.PPDC ---
SOCIAL MEDIA DIRECTOR Discharge Instruction Condition Patient Condition: Good Diet Diet: Resume Regular Diet Activity/Restrictions Activity: Normal Activity May Shower Restrictions: No Exercising No Lifting No Driving No Sexual Activity Nothing in the Vagina No [place] No Tampons, douche Wound/Drain Care Instructions Wound/Drain Care Instructions: Wash with soap and water Keep clean and dry Follow-up Follow-up with Physician: 3 Return to clinic for HEALTH INSURANCE AGENT Instructions: Fever greater than 101 Chills Worsening abdominal pain Excessive Vaginal Bleeding More than 2 pads per hour Unable to tolerate diet OB Instructions: Breast Tenderness Depression Blurried Vision Headache Surgical Instructions: Incisional Drainage Incisional Redness MARIKA ROSA MD Jun 02, 2017 18:09
--- NOTE | 2017-06-02 18:11 | DS ---
Date/Time of Note Date/Time of Note DATE: 06/02/17 TIME: 18:10 Obstetrical Discharge Record Final Diagnosis Final Diagnosis: Term delivered Vaginal Delivery Obstetrical Delivery: Episiotomy, Repaired Complications Other (oligo) Augmentation: No Induction: Yes Condition on Discharge Physical Assessment Voiding: Yes Bowel Movement: Yes Breast: Soft, non-tender, Filling Fundus: Firm Calf Tenderness: No Patient Condition: Fair MARIKA ROSA MD Jun 02, 2017 18:11
== END 2017-06-02 19:00 | disposition home or self-care (01) | DRG 775 ==
LOC: OBT 15:22 → L-D 15:22 → OBT 17:32 → L-D 18:13 → PP1 05-31 18:15
PROVIDERS: ADMIT Obstetrics & Gynecology; ATTEND Obstetrics & Gynecology
PROC: 10E0XZZ Delivery of Products of Conception, External Approach (ICD-10-PCS; principal; 2017-05-31)
PROC: 0W8NXZZ Division of Female Perineum, External Approach (ICD-10-PCS; 2017-05-31)
PROC: 3E0P3VZ Introduction of Hormone into Female Reproductive, Percutaneous Approach (ICD-10-PCS; 2017-05-31)
DX: O41.03X0 Oligohydramnios, third trimester, not applicable or unspecified (principal); Z37.0 Single live birth; Z3A.37 37 weeks gestation of pregnancy
CPT/HCPCS: 36415; 76815; 76818; 80053; 81001; 84112; 85025; 85610; 85730; 86592; 86900; 86901; 87340; 90686; 96360; G0463; J0595; J2590; J7120